=== PATIENT | male | born 1990 | race Caucasian/White ===

== ENCOUNTER 2018-08-29 21:11 | Emergency (ER) | payer OTHER ==
[2018-08-29] MEDS ORDERED: SODIUM CHLORIDE 0.9% 1,000 ML IV STA (21:33)
[2018-08-29] MEDS ORDERED: diphenhydrAMINE 50 MG/ML 1 ML VIAL IVP STA (21:33)
[2018-08-29] MEDS ORDERED: METOCLOPRAMIDE 5 MG/ML 2 ML VIAL IVP STA (21:33)
[2018-08-29] MEDS ORDERED: KETOROLAC 30 MG/ML 1 ML VIAL IVP STA (21:33)
--- NOTE | 2018-08-29 21:36 | ED ---
General Adult HPI - General Source: patient, RN notes reviewed, old records reviewed Mode of arrival: ambulatory Limitations: no limitations <Colten Schwartz - Last Filed: 08/29/18 22:24> <Danae Wynne - Last Filed: 09/04/18 22:47> - General Chief complaint: Headache Stated complaint: Headache Time Seen by Provider: 08/29/18 21:19 - History of Present Illness Initial comments: 28-year-old male patient passed no history of migraine headaches presents to ED with right frontal/temporal lobe headache has waxed and waned for approximately 4 days. Patient states that the quality of headache is similar to migraines she has experienced in the past. Patient describes it as a sharp pain. He states that the location is somewhat different than his migraines he has had in the past as he generally experiences migraines on the right frontal lobe, however this headache has affected his frontal ecchymosis temporal lobe. Patient states that this is not the worst headache of his life. Patient denies thunderclap onset. He reports that he was an insidious onset. Patient states that the headache has waxed and waned over 4 days. Patient denies any recent falls or trauma. Patient denies any other complaints. Systemic: Pt denies fatigue, myalgia, fever/chills, rash. Pt denies weakness, night sweats, weight loss. Neuro: Pt denies visual disturbances, syncope or pre-syncope. HEENT: Pt denies ocular discharge or irritation, otalgia, rhinorrhea, pharyngitis or notable lymphadenopathy. Cardiopulmonary: Pt denies chest pain, SOB, heart palpitations, dyspnea on exertion. Abdominal/GI: Pt denies abdominal pain, n/v/d. : Pt denies dysuria, burning w/ urination, frequency/urgency. Denies new onset urinary or bowel incontinence. MSK: Pt denies myalgia, loss of strength or function in extremities. Neuro: Pt denies new onset weakness, paresthesias. (Colten Schwartz) - Related Data Home Medications Medication Instructions Recorded Confirmed [id number] 3 tab PO TID PRN 08/29/18 08/29/18 [Excedrin] Allergies Allergy/AdvReac Type Severity Reaction Status Date / Time Penicillins Allergy Rash/Hives Verified 08/29/18 21:52 Review of Systems ROS Other: All systems not noted in ROS Statement are negative. <Colten Schwartz - Last Filed: 08/29/18 22:24> ROS Other: All systems not noted in ROS Statement are negative. <Danae Wynne Rolando - Last Filed: 09/04/18 22:47> ROS Statement: Those systems with pertinent positive or pertinent negative responses have been documented in the HPI. Past Medical History Additional Past Medical History / Comment(s): migraines History of Any Multi-Drug Resistant Organisms: None Reported Additional Past Surgical History / Comment(s): wisdom teeth. bilateral eyes. Past Psychological History: Anxiety, Depression Smoking Status: Current every day smoker Past Alcohol Use History: None Reported Past Drug Use History: None Reported <Colten Schwartz - Last Filed: 08/29/18 22:24> General Exam Limitations: no limitations <Colten Schwartz - Last Filed: 08/29/18 22:24> - General Exam Comments Initial Comments: Constitutional: NAD, AOX3, Pt has pleasant affect. HEENT: NC/AT, trachea midline, neck supple, no lymphadenopathy. Posterior pharynx non erythematous, without exudates. External ears appear normal, without discharge. Mucous membranes moist. Eyes PERRLA, EOM intact. There is no scleral icterus. No pallor noted. Cardiopulmonary: RRR, no murmurs, rubs or gallops, no JVD noted. Lungs CTAB in anterior and posterior butler. No peripheral edema. Abdominal exam: Abdomen soft and non-distended. Abdomen non-tender to palpation in all 4 quadrants. Bowel sounds active in LLQ. No hepatosplenomegaly. No ecchymosis Neuro: CN II-XII intact. No nuchal rigidity. No focal deficit, no facial droop. Full active range of motion of cervical spine. MSK: No posterior calf tenderness bilaterally, homans sign negative bilaterally. Posterior tibialis and radial pulse +2 bilaterally. Sensation intact in upper and lower extremities. Full active ROM in upper and lower extremities, 5/5 stregnth. (Colten Schwartz) Course Vital Signs 08/29/18 08/29/18 21:13 22:36 Temperature 98.3 F 98 F Pulse Rate 94 89 Respiratory 16 18 Rate Blood Pressure 164/79 118/62 O2 Sat by Pulse 97 100 Oximetry Medical Decision Making <Colten Schwartz - Last Filed: 08/29/18 22:24> <Danae Wynne - Last Filed: 09/04/18 22:47> - Medical Decision Making 28-year-old male patient passed no history of migraine headaches presents to ED with right frontal/temporal lobe headache has waxed and waned for approximately 4 days. Patient states that the quality of headache is similar to migraines she has experienced in the past. Patient describes it as a sharp pain. He states that the location is somewhat different than his migraines he has had in the past as he generally experiences migraines on the right frontal lobe, however this headache has affected his frontal ecchymosis temporal lobe. Patient states that this is not the worst headache of his life. Patient denies thunderclap onset. He reports that he was an insidious onset. Patient states that the headache has waxed and waned over 4 days. Patient denies any recent falls or trauma. Patient denies any other complaints. Patient vital signs stable, afebrile. Physical exam did not display acute pathology. Neuro exam within normal limits. Repeat normal exam within normal limits. Shared decision making, patient does not want imaging of his brain.Please use medication as discussed. Please follow-up with family doctor in the next 2 days of symptoms have not improved. Please return to emergency room if the symptoms increase or worsen or for any other concerns. Miranda has had [address] of his brain. Patient administered Toradol, Benadryl, Reglan, patient has headache improved. Patient feels comfortable for discharge. Patient to follow up with primary care provider in 1-2 days for continued evaluation of headaches. Patient to ret urn to ED if he isn't symptoms develop or if condition worsens anyway. Case discussed with Dr. Wynne. (Colten Schwartz) I was available for consultation in the emergency department. The history and physical exam were done by the midlevel provider. I was consulted for this patient's care. I reviewed the case with the midlevel provider and based on their presentation of the patient, I agree with the assessment, medical decision making and plan of care as documented. (Danae Wynne) Disposition Is patient prescribed a controlled substance at d/c from ED?: No <Colten Schwartz J - Last Filed: 08/29/18 22:24> <Danae Wynne - Last Filed: 09/04/18 22:47> Clinical Impression: Headache Disposition: HOME SELF-CARE Condition: Stable Instructions (If sedation given, give patient instructions): Acute Headache (ED) Additional Instructions: Patient to adhere to previously discussed treatment plan and will take medication(s) as directed. Patient to follow up with PCP in 1-2 days. Patient to return to ED if symptoms do not improve. Please return to ER if condition worsens in any way. Follow-up with primary care provider in 1-2 days for continued evaluation. Referrals: Osvaldo Lim MD [Primary Care Provider] - 1-2 days
[2018-08-29 22:37] VITALS: BP 118/62; PULSE 89; RESP 18; TEMP 98
== END 2018-08-29 22:36 | disposition home or self-care (01) ==
LOC: EC 21:11
DX: R51 Headache (principal); F17.200 Nicotine dependence, unspecified, uncomplicated; Z88.0 Allergy status to penicillin
CPT/HCPCS: 99283; 96374; 96375 ×2; 96361; J1200; J2765; J1885

== ENCOUNTER 2019-03-09 16:58 | Emergency (ER) | payer BC, OTHER ==
[2019-03-09 17:06] VITALS: BP 144/85; PULSE 80; RESP 18; TEMP 98
--- NOTE | 2019-03-09 18:19 | CT ---
EXAMINATION TYPE: CT brain wo con DATE OF EXAM: 03/09/2019 COMPARISON: HISTORY: Hit in jaw by trailer. Laceration to left side of chin. CT DLP: 1383.6 total mGycm. Automated Exposure Control for Dose Reduction was Utilized. TECHNIQUE: CT scan of the head is performed without contrast. FINDINGS: Ventricles and sulci appear normal. There is no mass effect nor midline shift. There is no sign of intracranial hemorrhage. The calvarium is intact. IMPRESSION: Normal head CT scan.
--- NOTE | 2019-03-09 18:19 | CT ---
EXAMINATION TYPE: CT facial bones wo con DATE OF EXAM: 03/09/2019 COMPARISON: None HISTORY: Hit in jaw by trailer. Laceration to left side of chin. CT DLP: 1383.6 total mGycm Automated exposure control for dose reduction was used. TECHNIQUE: CT scan of the sinuses is performed without contrast, axial images are obtained, coronal r eformatted images are also reviewed. FINDINGS: The mandibular ring is intact. Temporomandibular joints appear normal. The maxilla is intac t. There is no evidence of blowout fracture. Orbital margins are intact. There is no sign of retro-or bital mass. Nasal bone appears intact. Zygomatic arches appear normal. I see no bony destructive proc ess. The skull base appears intact. There is fairly normal aeration of the paranasal sinuses. IMPRESSION: Negative CT scan of the facial bones. No fracture seen. No mandibular fracture seen.
[2019-03-09] MEDS ORDERED: IBUPROFEN 600 MG STARTER PACK 4 TAB BTL PO STA (18:26)
[2019-03-09] MEDS ORDERED: ACETAMINOPHEN TAB 500 MG TAB PO STA (18:26)
--- NOTE | 2019-03-09 18:27 | ED ---
General Adult HPI - General Chief complaint: Head Injury Stated complaint: Headache Time Seen by Provider: 03/09/19 17:04 Source: patient, RN notes reviewed, old records reviewed Mode of arrival: EMS Limitations: no limitations - History of Present Illness Initial comments: Patient is a 28-year-old male presents mentioned today 2 days after a head and j aw injury while at work. Patient reports that he was lifting a gait on the back of a truck and came forward and hit him in the lower jaw. He states that he saw stars afterwards, complains of a persistent headache and some jaw tenderness. Patient states that he's had no loss consciousness. No vomiting. Patient reports that he's had no other significant complaints at this time. - Related Data Home Medications Medication Instructions Recorded Confirmed [id number] 3 tab PO TID PRN 08/29/18 03/09/19 [Excedrin] Allergies Allergy/AdvReac Type Severity Reaction Status Date / Time Penicillins Allergy Rash/Hives Verified 08/29/18 21:52 Review of Systems ROS Statement: Those systems with pertinent positive or pertinent negative responses have been documented in the HPI. ROS Other: All systems not noted in ROS Statement are negative. Past Medical History Additional Past Medical History / Comment(s): migraines History of Any Multi-Drug Resistant Organisms: None Reported Additional Past Surgical History / Comment(s): wisdom teeth. bilateral eyes. Past Psychological History: Anxiety, Depression Smoking Status: Current every day smoker Past Alcohol Use History: None Reported Past Drug Use History: None Reported General Exam - General Exam Comments Initial Comments: 28-year-old male. Alert and oriented 3. Patient appears in no distress. General: Well appearing, well nourished, in no distress. Oriented x 3, normal mood and affect . Ambulating without difficulty. Skin: Good turgor, no rash, unusual bruising or prominent lesions Hair: Normal texture and distribution. HEENT: Head: Normocephalic, atraumatic, no visible or palpable masses, depressions, or scaring. Eyes: Visual acuity intact, conjunctiva clear, sclera non-icteric, EOM intact, PERRL. Ears: EACs clear, TMs translucent & cone of light visualized. hearing intact. Nose: No external lesions, mucosa non-inflamed, septum and turbinates normal Mouth: Mucous membranes moist, no mucosal lesions. She has a scab over the left lower jaw. Teeth/Gums: No obvious caries or periodontal disease. Pharynx: Mucosa non-inflamed, no tonsillar hypertrophy or exudate Neck: Supple, without lesions, bruits, or adenopathy, thyroid non-enlarged and non-tender Heart: No cardiomegaly or thrills; regular rate and rhythm, no murmur or gallop Lungs: Clear to auscultation and percussion Musculoskeletal: Normal gait and station. No misalignment, asymmetry, crepitation, defects, tenderness, masses, effusions, decreased range of motion, instability, atrophy or abnormal strength or tone in the head, neck, spine, ribs, pelvis or extremities. Neurologic: CN 2-12 normal. Sensation to pain, touch, and proprioception normal. DTRs normal in upper and lower extremities. No pathologic reflexes. Psychiatric: Oriented X3, intact recent and remote memory, judgment and insight, normal mood and affect. Limitations: no limitations Course Vital Signs 03/09/19 17:04 Temperature 98.0 F Pulse Rate 80 Respiratory 18 Rate Blood Pressure 144/85 O2 Sat by Pulse 100 Oximetry Medical Decision Making - Medical Decision Making 28-year-old male presented today for evaluation with chief complaint of minor head injury, jaw injury. Patient warts that he was at work, and the back of a truck came back and hit the period he reports he's had persistent headaches since that time it is infiltrated motion of his jaw. This time Patient has a small contusion over the left lower jawline. No significant bruising is noted. Full range of motion of the jaw. Teeth are intact and no sign of tongue laceration. This time patient's CT of the brain and facial bones negative for any acute process. Discussed likely minor concussion and contusion. Discussed Motrin Tylenol for pain. All questions were answered return parameters were discussed. Disposition Clinical Impression: Minor head injury, Contusion of jawline Disposition: HOME SELF-CARE Condition: Good Instructions (If sedation given, give patient instructions): Head Injury (ED) Additional Instructions: Patient continue Motrin Tylenol for pain. Apply cool compresses over the area that are sore in her jaw. Patient should return to the emergency department if any alarming signs or symptoms occur. Is patient prescribed a controlled substance at d/c from ED?: No Referrals: Osvaldo Lim MD [Primary Care Provider] - 1-2 days Time of Disposition: 18:27
== END 2019-03-09 19:04 | disposition home or self-care (01) ==
LOC: EC 16:58
DX: S00.83XA Contusion of other part of head, initial encounter (principal); S09.90XA Unspecified injury of head, initial encounter; F17.200 Nicotine dependence, unspecified, uncomplicated; Z86.69 Personal history of other diseases of the nervous system and sense organs; Z88.0 Allergy status to penicillin; W22.8XXA Striking against or struck by other objects, initial encounter; Y92.69 Other specified industrial and construction area as the place of occurrence of the external cause; Y93.89 Activity, other specified; Y99.0 Civilian activity done for income or pay
CPT/HCPCS: 70450; 70486; 99284

== ENCOUNTER → 2019-06-13 | Outpatient (CLI) | payer BC, OTHER ==
[2019-06-13 16:11] LABS: African American GFR (CKD) 132.4 (60.0-200.0); Albumin 4.1 g/dL (3.80-4.90); Albumin/Globulin Ratio 1.64 (1.60-3.17); Anion Gap 4.1 mmol/L (4.00-12.00); BUN/Creat Ratio 13.33 Ratio (12.00-20.00); Calcium 8.9 mg/dL (8.7-10.3); Carbon Dioxide 24.9 mmol/L (21.6-31.8); Chol/HDL Ratio 6.46; Globulin 2.5 g/dL (1.6-3.3); LDL Cholesterol,Calculated 119.4 mg/dL (0.0-131.0); Non-African American GFR(CKD) 114.2 (60.0-200.0); Potassium 4.6 mmol/L (3.5-5.5); Total Bilirubin 0.2 mg/dL (0.3-1.2); Total Protein 6.6 g/dL (6.2-8.2); VLDL Calculation 33.6 mg/dL (5.00-40.00)
== END | disposition home or self-care (01) ==
LOC: LABWHC1 08:52
DX: Z00.00 Encounter for general adult medical examination without abnormal findings (principal)
CPT/HCPCS: 36415; 80053; 80061; 84443